=== PATIENT | female | born 2000 | race African-American/Black ===

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

== ENCOUNTER → 2019-02-08 10:51 | Outpatient (CLI) | payer MEDICARE ==
[~2019-02-08 10:51] MED LIST: ALBUTEROL SULF8.5 GM INH; HYDROCODON-ACE1 EAC7 PO; KEFLEX500 MG PO; LEVAQUIN750 MG PO; PROBIOTIC1 EAC1 PO; SULFAMETHOXAZOL1 TA3 PO; VIBRAMYCIN 100100 MG PO; VOLTAREN75 MG PO
[2019-02-08 13:13] LABS: ALBUMIN 3.8 g/dL (3.4-5.0); BILIRUBIN - DIRECT 0.13 mg/dL (0.00-0.30); BILIRUBIN - INDIRECT 0.51 mg/dL (0.00-1.00); BILIRUBIN - TOTAL 0.64 mg/dL (0.2-1.3)
== END | disposition home or self-care (01) ==
LOC: D.US 10:51
PROVIDERS: Internal Medicine Gastroenterology
DX: K76.0 Fatty (change of) liver, not elsewhere classified (principal)

== ENCOUNTER 2019-03-16 17:41 | Observation (INO) | payer MEDICARE ==
[~2019-03-16] VITALS: Ht 162.6 cm; Wt 104.3 kg
[2019-03-16 18:45] LABS: BASOPHILS 0.1 % (0-2); EOSINOPHILS 2.4 % (0-7); HEMATOCRIT 41.9 % (36.0-48.0); HEMOGLOBIN 14.1 g/dL (12-16); LYMPHOCYTES 20.6 % (15-50); MCH 27.2 pg (26.0-34.0); MCHC 33.7 g/dL (31.0-37.0); MCV 80.7 fL (80.0-100.0); MEAN PLATELET VOLUME 10.4 fL (7.4-10.4); MONOCYTES 7.8 % (2-11); NEUTROPHILS 68.1 % (40-80); RBC 5.19 10x6/uL (4.00-5.40); RDW 13.2 % (11.5-14.5); WBC 15.4 10x3/uL (4.8-10.8)
[2019-03-16 18:51] LABS: HCG SERUM NEGATIVE (NEGATIVE)
[2019-03-16 18:52] LABS: PLATELET COUNT 403 10x3/uL (130-400)
--- NOTE | 2019-03-16 19:50 | NUR ---
CENTRAL LINE PLACED BY DR. GUNDERSON, STERILE DRESSING APPLIED TO SITE. PT TOLERATED WELL.
[2019-03-16 20:10] VITALS: BP 127/82
--- NOTE | 2019-03-16 20:17 | NUR ---
PT'S WOUNDS CLEANED WITH MICRO CLEANSE, BACITRACIN OINTMENT AND CLEAN DRY DRESSING APPLIED. PT TOLERATED WELL.
[2019-03-16 20:35] LABS: ALBUMIN 3.7 g/dL (3.4-5.0); ALKALINE PHOSPHATASE 58 U/L (46-116); ALT (SGPT) 28 U/L (10-68); BILIRUBIN - TOTAL 0.36 mg/dL (0.2-1.3); CALC OSMOLALITY 280 mosm/kg (275-300); CALCIUM 9.2 mg/dL (8.5-10.1); CARBON DIOXIDE 23.4 mmol/L (21.0-32.0); CHLORIDE - SERUM 105 mmol/L (98-107); CREATININE - SERUM 0.5 mg/dL (0.6-1.3); GLUCOSE 97 mg/dL (74-106); POTASSIUM - SERUM 3.7 mmol/L (3.5-5.1); PROTEIN - SERUM 6.8 g/dL (6.4-8.2); SODIUM 140 mmol/L (136-145); UREA NITROGEN 17 mg/dL (7-18); eGFR NON AFRICAN AMERICAN > 90 mL/min (90-120)
[2019-03-16 20:36] LABS: APTT 26.5 SECONDS (22.8-39.4); INR 1.06 (0.85-1.17); PROTIME 13.3 SECONDS (11.6-15.0)
[2019-03-16 22:59] LABS: APPEARANCE HAZY (CLEAR); BACTERIA FEW /hpf (NONE SEEN); BILIRUBIN NEGATIVE (NEGATIVE); COLOR YELLOW (YELLOW); EPITHELIAL CELLS 0-5 /hpf (0-5); GLUCOSE NEGATIVE (NEGATIVE); KETONE NEGATIVE (NEGATIVE); NITRITE NEGATIVE (NEGATIVE); PROTEIN NEGATIVE (NEGATIVE); RED CELLS - URINE 0-5 /hpf (0-5); SPECIFIC GRAVITY 1.015 (1.005-1.020); UROBILINOGEN NORMAL (NORMAL)
[2019-03-16 23:02] LABS: UDS - AMPHET NEGATIVE QUAL (NEGATIVE); UDS - BARB NEGATIVE QUAL (NEGATIVE); UDS - BENZO NEGATIVE QUAL (NEGATIVE); UDS - COCAINE NEGATIVE QUAL (NEGATIVE); UDS - OPIATE POSITIVE QUAL (NEGATIVE); UDS - PCP NEGATIVE QUAL (NEGATIVE); UDS - THC POSITIVE QUAL (NEGATIVE)
[2019-03-17] VITALS (7 sets, daily range): BP systolic 106–138; BP diastolic 74–85; Ht 162.6 cm; Wt 104.3 kg
--- NOTE | 2019-03-17 04:53 | NUR ---
I have reviewed this patient and I concur with the Shift Assessment completed by the Licensed Practical Nurse today this shift.
--- NOTE | 2019-03-17 09:04 | NUR ---
PT RESTING IN BED. CO OF PAIN OF "5 TO R ELBOW AND R HEEL." FRIEND AT BEDSIDE. NO S/S OF ACUTE DISTRESS. CL IN PLACE.
[2019-03-17 09:52] LABS: BASOPHILS 0.1 % (0-2); EOSINOPHILS 1.4 % (0-7); HEMATOCRIT 37.6 % (36.0-48.0); HEMOGLOBIN 12.4 g/dL (12-16); IMMATURE GRANULOCYTES 0.4 % (0-5); LYMPHOCYTES 9.8 % (15-50); MCH 27.1 pg (26.0-34.0); MCV 82.1 fL (80.0-100.0); MEAN PLATELET VOLUME 9.7 fL (7.4-10.4); MONOCYTES 11.1 % (2-11); NEUTROPHILS 77.2 % (40-80); PLATELET COUNT 341 10x3/uL (130-400); RBC 4.58 10x6/uL (4.00-5.40); RDW 13.3 % (11.5-14.5); WBC 16.1 10x3/uL (4.8-10.8)
[2019-03-17 10:20] LABS: ALBUMIN 3.3 g/dL (3.4-5.0); ALKALINE PHOSPHATASE 59 U/L (46-116); BILIRUBIN - TOTAL 0.77 mg/dL (0.2-1.3); CALCIUM 8.8 mg/dL (8.5-10.1); CARBON DIOXIDE 26.5 mmol/L (21.0-32.0); CHLORIDE - SERUM 104 mmol/L (98-107); CREATINE KINASE 107 UL (21-215); CREATININE - SERUM 0.6 mg/dL (0.6-1.3); GLUCOSE 93 mg/dL (74-106); MAGNESIUM - SERUM 1.8 mg/dL (1.8-2.4); PHOSPHOROUS 4.6 mg/dL (2.5-4.9); PROTEIN - SERUM 6.3 g/dL (6.4-8.2); SODIUM 140 mmol/L (136-145); eGFR NON AFRICAN AMERICAN > 90 mL/min (90-120)
[2019-03-17 10:23] LABS: ALT (SGPT) 18 U/L (10-68); CALC OSMOLALITY 278 mosm/kg (275-300); UREA NITROGEN 12 mg/dL (7-18)
--- NOTE | 2019-03-17 14:19 | MORECARE ---
CASE MANAGEMENT DISCHARGE SUMMARY PATIENT: ALEENA HOLDER UNIT: [id number] ADM DATE: 03/16/19 AGE: 18 : 99 SEX: F ROOM/BED: D.2229 AUTHOR: RICCI DOUGLAS PHYSICIAN: REFERRING PHYSICIAN: SPENCER GUNDERSON MD DATE OF SERVICE: 03/17/19 Discharge Plan Patient Name: ALEENA HOLDER [facility] [facility] 2000 Planned Disposition: Home Anticipated Discharge Date: Discharge Date: Expected LOS: Initial Reviewer: [email or web address] Initial Review Date: 03/17/2019 Generated: 03/17/19 3:19 pm Patient Name: ALEENA HOLDER Page [phone] at 1419 All edits/amendments must be made on the electronic document DICTATION DATE: 03/17/19 1418 OCCUPATIONAL THERAPIST AIDE: YAIMA 03/17/19 1418 RPT#: [id number] [place] DATE: STATUS: ADM IN [facility] [address] [place] [address] END OF REPORT
--- NOTE | 2019-03-17 14:36 | MORECARE ---
CASE MANAGEMENT DISCHARGE SUMMARY PATIENT: ALEENA HOGUE UNIT: [id number] ADM DATE: 03/16/19 AGE: 18 : 99 SEX: F ROOM/BED: D.2229 AUTHOR: STELLADOC PHYSICIAN: REFERRING PHYSICIAN: SPENCER GUNDERSON MD DATE OF SERVICE: 03/17/19 Discharge Plan Patient Name: ALEENA HOGUE Facility: [facility]:[place] : 2000 Planned Disposition: Home Anticipated Discharge Date: Discharge Date: Expected LOS: Initial Reviewer: [email or web address] Initial Review Date: 03/17/2019 Generated: 03/17/19 3:36 pm Comments DCP- Discharge Planning Updated by [email or web address]: Rosa Das on 03/17/19 1:[address] Patient Name: ALEENA HOGUE Admission Status: ER Accout number: [id number] Admission Date: 03-16-2019 : 2000 Admission Diagnosis: Attending: SPENCER GUNDERSON Current LOS: 1 Anticipated DC Date: Planned Disposition: Home Primary Insurance: [employer] Discharge Planning Comments: CM met with patient to complete initial dc planning assessment. CM educated patient on the CM role and verbal consent given by patient to complete assessment. Patient lives at home with her two sisters. Her sister states their mother lives next door. She is drowsy from SKID STRAPPER and gives me permission to discuss discharge planning with her sisters. Her sister states at discharge patient plans to return home with them and feels this is a safe discharge. CM discussed availability of home health, rehab services, and medical equipment. Sister states she is having some difficulty walking and may need a walker or crutches. I placed an order for a PT eval. CM will continue to follow and will assist as needed with dc plans/needs. Bottle Washing Machine Operator: Rosa Das DCPIA - Discharge Planning Initial Assessment Updated by [email or web address]: Rosa Das on 03/17/19 2:28 pm * Is the patient Alert and Oriented? Yes * How many steps to enter\exit or inside your home? 3/0 * PCP No PCP * Pharmacy [facility] * Preadmission Environment Home with Family * ADLs Independent * Equipment None * List name and contact numbers for known caregivers / representatives who currently or will assist patient after discharge: Madhuri Hogue - mother - [phone] Alexus - sister - [phone] Arnie Hogue - sister - [phone] * Verbal permission to speak to the caregivers and representatives has been obtained from the patient. Yes * Community resources currently utilized None * Additional services required to return to the preadmission environment? No * Can the patient safely return to the preadmission environment? Yes * Has this patient been hospitalized within the prior 30 days at any hospital? No Last DP export: 03/17/19 1:19 pm Patient Name: ALEENA HOGUE Page [phone] at 1436 All edits/amendments must be made on the electronic document DICTATION DATE: 03/17/191434 OPTICAL WORKER: YAIMA 03/17/19 143 RPT#: [id number] DC DATE: STATUS: ADM IN [facility] [address] [place] [address] END OF REPORT
--- NOTE | 2019-03-17 19:46 | NUR ---
PT RESTING IN BED. DENIES PAIN. DRESSING CHANGED DONE TO R ELBOW, L HAND, AND R HEEL. NO S/S OF ACUTE DISTRESS. CL IN PLACE.
--- NOTE | 2019-03-17 20:00 | NUR ---
AWAKE,ALERT.NO COMPLAITNS VOICED. RESP EVEN AND UNLABORED. NO DISTRESS NOTED.IJ TO RIGHT NECK INTACT WITHOUT REDNESS OR EDEMA NOTED. DRESSING TO LEFT ARM WITH DRAINAGE NOTED. SLING TO RIGHT ARM INTACT.GARNETT MECHANIC DILAUDID IN USE FOR PAIN CONTROL. FAMILY AT BEDSIDE.
[2019-03-18] VITALS: BP 141/83
[2019-03-18 04:00] VITALS: BP 130/71
--- NOTE | 2019-03-18 04:17 | NUR ---
I have reviewed this patient and I concur with the Shift Assessment completed by the Licensed Practical Nurse today this shift.
[2019-03-18] MEDS ORDERED: HYDROCODON-ACE1 EAC7 PO (08:03)
[2019-03-18 09:39] VITALS: BP 138/79
--- NOTE | 2019-03-18 11:23 | MORECARE ---
CASE MANAGEMENT DISCHARGE SUMMARY PATIENT: ALEENA HOGUE UNIT: [id number] ADM DATE: 03/16/19 AGE: 18 : 99 SEX: F ROOM/BED: D.2229 AUTHOR: RICCI DOUGLAS PHYSICIAN: REFERRING PHYSICIAN: SPENCER GUNDERSON MD DATE OF SERVICE: 03/18/19 Discharge Plan Patient Name: ALEENA HOGUE Facility: [facility]:[place] : 2000 Planned Disposition: Home Anticipated Discharge Date: Discharge Date: Expected LOS: Initial Reviewer: [email or web address] Initial Review Date: 03/17/2019 Generated: 03/18/19 12:23 pm Comments DCP- Discharge Planning Updated by [email or web address]: Rosa Pippa on 03/18/19 10:[address] Discharge orders received. Her sister is in the room to take her home. She is more alert today. States she has been ambulating in the room. States is "sore". Denies needs. Home today with her sister. CM will continue to follow and assist with discharge planning/needs. DCP- Discharge Planning Updated by [email or web address]: Rosa Pippa on 03/17/19 1:[address] Patient Name: ALEENA HOGUE Admission Status: ER Accout number: [id number] Admission Date: 03-16-2019 : 2000 Admission Diagnosis: Attending: SPENCER GUNDERSON Current LOS: 1 Anticipated DC Date: Planned Disposition: Home Primary Insurance: [employer] Discharge Planning Comments: CM met with patient to complete initial dc planning assessment. CM educated patient on the CM role and verbal consent given by patient to complete assessment. Patient lives at home with her two sisters. Her sister states their mother lives next door. 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 Her sister states at discharge patient plans to return home with them and feels this is a safe discharge. CM discussed availability of home health, rehab services, and medical equipment. Sister states she is having some difficulty walking and may need a walker or crutches. I placed an order for a PT eval. CM will continue to follow and will assist as needed with dc plans/needs. Statistical Modeler: Rosa Das DCPIA - Discharge Planning Initial Assessment Updated by [email or web address]: Rosa Das on 03/17/19 2:28 pm * Is the patient Alert and Oriented? Yes * How many steps to enter\\exit or inside your home? 3/0 * PCP No PCP * [facility] * Preadmission Environment Home with Family * ADLs Independent * Equipment None * List name and contact numbers for known caregivers / representatives who currently or will assist patient after discharge: Madhuri Hogue - mother - [phone] Alexus James sister - [phone] Arnie Hogue - sister - [phone] * Verbal permission to speak to the caregivers and representatives has been obtained from the patient. Yes * Community resources currently utilized None * Additional services required to return to the preadmission environment? No * Can the patient safely return to the preadmission environment? Yes * Has this patient been hospitalized within the prior 30 days at any hospital? No Last DP export: 03/17/19 1:36 pm Patient Name: ALEENA HOGUE Page [id number] at 1123 All edits/amendments must be made on the electronic document DICTATION DATE: 03/18/191122 CODING COMPLIANCE SPECIALIST: YAIMA 03/18/191122 RPT#: [id number] ME DATE: STATUS: ADM IN [address] [place] [address] END OF REPORT
--- NOTE | 2019-03-18 11:51 | NUR ---
*WOUND CARE* LEFT AND RIGHT HIP - TOÑO LATERAL RIGHT FOOT AND RIGHT ELBOW - - WASH WITH SOAP AND WATER OR WOUND WOODS OVERSEER AND PAT DRY. - APPLY ANTIBIOTIC OINTMENT. - COVER WITH NON ADHERENT DRESSING. - WRAP WITH KERLIX AND SECURE WITH TAPE. LEFT WRIST - - WASH WITH SOAP AND WATER OR WOUND CLEANSER AND PAT DRY. - COVER WITH FOLDED 4X4 AND SECURE WITH TAPE. ABOVE WOUND CARE TO BE PROVIDED DAILY AND WHEN SOILED.
--- NOTE | 2019-03-18 13:28 | NUR ---
DC HOME AT THIS TIME. VOICE UNDERSTANDING OF DC ORDERS. SISTER AND MOM AT BEDSIDE. STABLE CONDITION UPON DC.
--- NOTE | 2019-03-21 17:25 | MORECARE ---
CASE MANAGEMENT DISCHARGE SUMMARY PATIENT: ALEENA HOGUE UNIT: [id number] ADM DATE: 03/16/19 AGE: 18 : 99 SEX: F ROOM/BED: D.2229 AUTHOR: RICCI DOUGLAS PHYSICIAN: REFERRING PHYSICIAN: SPENCER GUNDERSON MD DATE OF SERVICE: 03/21/19 Discharge Plan Patient Name: ALEENA HOGUE Facility: [facility]:[place] : 2000 Planned Disposition: Home Anticipated Discharge Date: Discharge Date: 03/18/2019 Expected LOS: 0 Initial Reviewer: [email or web address] Initial Review Date: 03/17/2019 Generated: 03/21/19 6:25 pm Comments DCP- Discharge Planning Updated by [email or web address]: Rosa Das on 03/18/19 10:[address] Discharge orders received. Her sister is in the room to take her home. She is more alert today. States she has been ambulating in the room. States is "sore". Denies needs. Home today with her sister. CM will continue to follow and assist with discharge planning/needs. DCP- Discharge Planning Updated by [email or web address]: Rosa Das on 03/17/19 1:[address] Patient Name: ALEENA HOGUE Admission Status: ER Accout number: [id number] Admission Date: 03-16-2019 : 2000 Admission Diagnosis: Attending: SPENCER GUNDERSON Current LOS: 1 Anticipated DC Date: Planned Disposition: Home Primary Insurance: [employer] Discharge Planning Comments: CM met with patient to complete initial dc planning assessment. CM educated patient on the CM role and verbal consent given by patient to complete assessment. Patient lives at home with her two sisters. Her sister states their mother lives next door. 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 Her sister states at discharge patient plans to return home with them and feels this is a safe discharge. CM discussed availability of home health, rehab services, and medical equipment. Sister states she is having some difficulty walking and may need a walker or crutches. I placed an order for a PT eval. CM will continue to follow and will assist as needed with dc plans/needs. Coffee Farmer: Rosa Quiroscharles DCPIA - Discharge Planning Initial Assessment Updated by [email or web address]: Rosa Quiroscharles on 03/17/19 2:28 pm * Is the patient Alert and Oriented? Yes * How many steps to enter\\exit or inside your home? 3/0 * PCP No PCP * [facility] * Preadmission Environment Home with Family * ADLs Independent * Equipment None * List name and contact numbers for known caregivers / representatives who currently or will assist patient after discharge: Madhuri Hogue - mother - [phone] Alexus James sister - [phone] Arnie Hogue - sister - [phone] * Verbal permission to speak to the caregivers and representatives has been obtained from the patient. Yes * Community resources currently utilized None * Additional services required to return to the preadmission environment? No * Can the patient safely return to the preadmission environment? Yes * Has this patient been hospitalized within the prior 30 days at any hospital? No Last DP export: 03/18/19 10:23 am Patient Name: ALEENA HOGUE Page [id number] at 1725 All edits/amendments must be made on the electronic document DICTATION DATE: 03/21/191724 NUMERICAL CONTROL OPERATOR: YAIMA 03/21/191724 RPT#: [id number] DC DATE:03/18/19 STATUS: DIS IN [facility] [address] [place] [address] END OF REPORT
== END 2019-03-18 13:29 | disposition home or self-care (01) ==
LOC: D.ER 17:41 → D.MS 20:21 → OBSVTIME 20:21 → D.MS 20:21
PROVIDERS: Emergency Medicine; ADMIT Surgery; ATTEND Surgery
DX: S50.01XA Contusion of right elbow, initial encounter (principal); S90.01XA Contusion of right ankle, initial encounter; S80.01XA Contusion of right knee, initial encounter; S70.01XA Contusion of right hip, initial encounter; V23.4XXA Motorcycle driver injured in collision with car, pick-up truck or van in traffic accident, initial encounter; M25.521 Pain in right elbow; M25.561 Pain in right knee; M25.551 Pain in right hip; Z72.0 Tobacco use; R10.9 Unspecified abdominal pain

== ENCOUNTER 2019-03-25 19:17 | Emergency (ER) | payer MEDICARE ==
[~2019-03-25] VITALS: Ht 162.6 cm; Wt 100.0 kg
[~2019-03-25 19:17] MED LIST changes: -ALBUTEROL SULF8.5 GM INH; -KEFLEX500 MG PO; -LEVAQUIN750 MG PO; -PROBIOTIC1 EAC1 PO; -SULFAMETHOXAZOL1 TA3 PO; -VIBRAMYCIN 100100 MG PO; -VOLTAREN75 MG PO
[2019-03-25 19:45] VITALS: Ht 162.6 cm; Wt 100.0 kg
[2019-03-25] MEDS ORDERED: VIBRAMYCIN 100100 MG PO (20:30)
[2019-03-25] MEDS ORDERED: VOLTAREN75 MG PO (20:30)
[2019-03-25 21:33] VITALS: BP 126/54
== END 2019-03-25 21:18 | disposition home or self-care (01) ==
LOC: D.ER 19:17
DX: S90.511A Abrasion, right ankle, initial encounter (principal); X58.XXXA Exposure to other specified factors, initial encounter; Y93.89 Activity, other specified; Y92.89 Other specified places as the place of occurrence of the external cause

== ENCOUNTER 2019-03-30 00:42 | Inpatient (IN) | payer MEDICARE ==
[~2019-03-30] VITALS: Ht 162.6 cm; Wt 99.1 kg
[~2019-03-30 00:42] MED LIST changes: +VIBRAMYCIN 100100 MG PO; +VOLTAREN75 MG PO
[2019-03-30 01:37] LABS: BASOPHILS 0.2 % (0-2); EOSINOPHILS 3.6 % (0-7); HEMATOCRIT 40.6 % (36.0-48.0); HEMOGLOBIN 13.7 g/dL (12-16); IMMATURE GRANULOCYTES 0.8 % (0-5); LYMPHOCYTES 13.2 % (15-50); MCH 27.2 pg (26.0-34.0); MCHC 33.7 g/dL (31.0-37.0); MCV 80.7 fL (80.0-100.0); MEAN PLATELET VOLUME 9.4 fL (7.4-10.4); MONOCYTES 6.8 % (2-11); NEUTROPHILS 75.4 % (40-80); RBC 5.03 10x6/uL (4.00-5.40); WBC 11.9 10x3/uL (4.8-10.8)
[2019-03-30 01:45] LABS: PLATELET COUNT 465 10x3/uL (130-400)
[2019-03-30 01:56] LABS: ALBUMIN 4.2 g/dL (3.4-5.0); ALKALINE PHOSPHATASE 88 U/L (46-116); ALT (SGPT) 22 U/L (10-68); BILIRUBIN - TOTAL 0.58 mg/dL (0.2-1.3); CALC OSMOLALITY 281 mosm/kg (275-300); CALCIUM 9.6 mg/dL (8.5-10.1); CARBON DIOXIDE 23.2 mmol/L (21.0-32.0); CHLORIDE - SERUM 102 mmol/L (98-107); CREATININE - SERUM 0.8 mg/dL (0.6-1.3); GLUCOSE 92 mg/dL (74-106); POTASSIUM - SERUM 3.9 mmol/L (3.5-5.1); PROTEIN - SERUM 8.6 g/dL (6.4-8.2); SODIUM 140 mmol/L (136-145); UREA NITROGEN 22 mg/dL (7-18); eGFR NON AFRICAN AMERICAN > 90 mL/min (90-120)
--- NOTE | 2019-03-30 02:00 | NUR ---
LEFT EJ INSERTED BY DR. PÉREZ, 20G. TOLERATED WELL.
[2019-03-30 02:02] LABS: AMYLASE - SERUM 74 U/L (25-115); LIPASE 122 U/L (73-393); TROPONIN-I < 0.017 ng/mL (0.000-0.060)
--- NOTE | 2019-03-30 04:00 | NUR ---
STOP TIME FOR ZOSYN AND NS IS 0400.
--- NOTE | 2019-03-30 04:20 | NUR ---
LEFT EJ STARTED BY DR. PÉREZ AT 0200, TOLERATED WELL.
--- NOTE | 2019-03-30 04:25 | NUR ---
ADMITED VIA WC FROM ER IV SET AT 75 LUNGS DEMINISHED SKIN WARM AND DRY BOWEL SOUNDS X4 PT DENIES NEEDS BED LOW AND LOCKED CALL LIGHT PUT ION REACH AND HISTORY DONE
[2019-03-30 05:35] VITALS: BP 127/53; BMI 37.5
--- NOTE | 2019-03-30 05:45 | NUR ---
HARD TO AROUSE AT THIS TIME. UNABLE TO DEEP BREATH FOR LUNG ASSESSMENT. APPEARS SEDATED. DOES ANSWER QUESTIONS APPROPRIATLY. DENIES ANY NEEDS AT THIS TIME.
[2019-03-30 09:23] VITALS: BP 137/82
--- NOTE | 2019-03-30 10:30 | NUR ---
MORPHINE AND ZOFRAN GIVEN FOR C/O ABD PAIN. WILL MONITOR.
[2019-03-30 13:18] VITALS: BP 143/76
[2019-03-30 15:22] VITALS: Ht 162.6 cm; Wt 99.1 kg
[2019-03-30 15:59] LABS: UDS - AMPHET NEGATIVE QUAL (NEGATIVE); UDS - BARB NEGATIVE QUAL (NEGATIVE); UDS - BENZO NEGATIVE QUAL (NEGATIVE); UDS - COCAINE NEGATIVE QUAL (NEGATIVE); UDS - OPIATE POSITIVE QUAL (NEGATIVE); UDS - PCP NEGATIVE QUAL (NEGATIVE); UDS - THC NEGATIVE QUAL (NEGATIVE)
[2019-03-30 16:02] LABS: APPEARANCE HAZY (CLEAR); BILIRUBIN NEGATIVE (NEGATIVE); COLOR YELLOW (YELLOW); GLUCOSE NEGATIVE (NEGATIVE); KETONE NEGATIVE (NEGATIVE); NITRITE NEGATIVE (NEGATIVE); PROTEIN NEGATIVE (NEGATIVE); UROBILINOGEN NORMAL (NORMAL)
[2019-03-30 16:12] LABS: BACTERIA FEW /hpf (NONE SEEN); WHITE CELLS - URINE OCC /hpf (0-5)
[2019-03-30 18:58] VITALS: BP 137/63
--- NOTE | 2019-03-30 19:50 | NUR ---
EVENING ROUNDS COMPLETED. VSS, AAOX4, NO S/S OF DISTRESS. PARENT AT BEDSIDE. BRUISES BILAT ARM. PT DENIES ANY PAIN @ THIS TIME. STATES SHE ONLY FEELS A LITTLE NAUSEATED, BUT [facility] [place] [facility]PS. [facility] [place] PROVIDED PER PT REQUEST. PT DENIES ANY FURTHER NEEDS AT THIS TIME. WILL CPOC.
[2019-03-30 20:00] VITALS: BP 122/68
[2019-03-31] VITALS (7 sets, daily range): BP systolic 95–124; BP diastolic 42–67
--- NOTE | 2019-03-31 08:50 | NUR ---
PT RESTING IN BED, SHIFT ASSESSMENT PERFORMED. DENIES ANY NEEDS AT THIS TIME, WILL CONT TO FOLLOW POC
--- NOTE | 2019-03-31 11:40 | NUR ---
PT C/O NAUSEA, PRN ZOFRAN GIVEN ORDERED. DENIES ANY FURTHER NEEDS AT THIS TIME, WILL CONT TO FOLLOW POC
[2019-03-31 15:27] LABS: HEMATOCRIT 35.3 % (36.0-48.0); HEMOGLOBIN 11.6 g/dL (12-16); MCH 26.8 pg (26.0-34.0); MCHC 32.9 g/dL (31.0-37.0); MCV 81.5 fL (80.0-100.0); MEAN PLATELET VOLUME 9.3 fL (7.4-10.4); PLATELET COUNT 405 10x3/uL (130-400); RBC 4.33 10x6/uL (4.00-5.40); WBC 13.9 10x3/uL (4.8-10.8)
[2019-03-31 16:03] LABS: EOSINOPHILS 3 % (0-7); LYMPHOCYTES 14 % (15-50); MONOCYTES 8 % (2-11); NEUTROPHILS 75 % (40-80)
[2019-03-31 16:04] LABS: PLATELET ESTIMATE NORMAL
--- NOTE | 2019-03-31 17:06 | NUR ---
PT RESTING IN BED WITH FAMILY AT BEDSIDE. DENIES ANY NEEDS AT THIS TIME, WILL CONT TO FOLLOW POC
--- NOTE | 2019-03-31 19:30 | NUR ---
RESUMING CARE. PT LAYING IN A&O BREATH SOUNDS EVEN UNLABORED , PT HAS LEFT IJ NS @75 , PT C/O RUNNING STOOL, SPOKE WITH KARIS HAQUE STATED HE WOULD PUT AN ORDER IN , NO OTHER COMPLAINTS AT THIS TIME CL IN REACH WILL CONT TO MONITOR
[2019-04-01 04:03] VITALS: BP 129/69
--- NOTE | 2019-04-01 07:34 | NUR ---
ROUNDING DONE WITH PATIENT LAYING ON RIGHT SIDE WITH NO NEED VOICED EXCEPT TO SLEEP. LEFT IJ PIV SEEN WITH NS INFUSING AT 75 CC/HR. ON EP, NO LABS AT THIS TIME. ON ROOM AIR. WILL MONITOR.
[2019-04-01 07:59] LABS: BASOPHILS 0.1 % (0-2); EOSINOPHILS 2.3 % (0-7); HEMATOCRIT 36.1 % (36.0-48.0); HEMOGLOBIN 11.6 g/dL (12-16); IMMATURE GRANULOCYTES 0.6 % (0-5); LYMPHOCYTES 22.1 % (15-50); MCH 26.3 pg (26.0-34.0); MCHC 32.1 g/dL (31.0-37.0); MCV 81.9 fL (80.0-100.0); MEAN PLATELET VOLUME 9.7 fL (7.4-10.4); MONOCYTES 10.4 % (2-11); NEUTROPHILS 64.5 % (40-80); PLATELET COUNT 409 10x3/uL (130-400); RBC 4.41 10x6/uL (4.00-5.40); RDW 13.2 % (11.5-14.5); WBC 12.9 10x3/uL (4.8-10.8)
[2019-04-01 08:00] LABS: CALC OSMOLALITY 284 mosm/kg (275-300); CALCIUM 8.7 mg/dL (8.5-10.1); CARBON DIOXIDE 25.7 mmol/L (21.0-32.0); CHLORIDE - SERUM 108 mmol/L (98-107); CREATININE - SERUM 0.9 mg/dL (0.6-1.3); GLUCOSE 82 mg/dL (74-106); POTASSIUM - SERUM 3.8 mmol/L (3.5-5.1); SODIUM 143 mmol/L (136-145); UREA NITROGEN 15 mg/dL (7-18); eGFR NON AFRICAN AMERICAN 85 mL/min (90-120)
--- NOTE | 2019-04-01 08:00 | NUR ---
PATIENT IS UP AD SHINE, REFUSES SCD'S.
--- NOTE | 2019-04-01 08:23 | NUR ---
EP WITH RESULTS OF 3.8.
[2019-04-01 08:54] VITALS: BP 135/65
[2019-04-01 12:12] VITALS: BP 113/55
[2019-04-01] MEDS ORDERED: LEVAQUIN750 MG PO (13:18)
[2019-04-01] MEDS ORDERED: ALBUTEROL SULF8.5 GM INH (13:19)
--- NOTE | 2019-04-01 14:04 | NUR ---
DRESSINGS CHANGED TO RIGHT ELBOW AND RIGHT ANKLE FOLLOWS: RIGHT ANKLE: 5.5 CM X 2 CM WITH WHITE EXUDATE AND RED WOUND BED UNDER THIS. COVERED WITH NEOSPORIN AND COVERED WITH WHITE BORDER GUAZE DRESSING. DATED. RIGHT ELBOW: TWO SEPERATE WOUNDS. 5 CM X 2 CM AND THE OTHER IS 3.5 CM X 2 CM. BOTH OF THEM ARE CLEAN WOUND BEDS. COVERED WITH NEOSPRIN AND WHITE BORDER GAUZE DRESSING. DATED. TOELRATED WELL. INSTRUCTED PATIENT TO CHANGE DAILY, COVER WITH NEOSPRIN AND LARGE BANDAIDS.
--- NOTE | 2019-04-01 15:52 | NUR ---
PATIENT IS WAITING ON HER MOTHER FOR DISCHARGE. SHE STILL HAS HER LEFT IJ PIV IN.
[2019-04-01 16:15] VITALS: BP 109/61
--- NOTE | 2019-04-01 16:23 | NUR ---
LEFT IJ PIV REMOVED WITH CATH TIP INTACT. CLEAN 2 X 2 AND OPSITE APPLIED. TO LAY FLAT X 15 MIN. WILL CHECK AND IF NO BLEEDING OR PROBLEMS, WILL DISCHARGE HOME WITH MOTHER.
--- NOTE | 2019-04-01 16:48 | NUR ---
VERBAL AND WRITTEN DISCHARGE INSTRCUTION GIVEN TO PATIENT AND MOTHER. DISCHARGED HOME VIA WHEELCHAIR.
--- NOTE | 2019-04-01 17:33 | MORECARE ---
CASE MANAGEMENT DISCHARGE SUMMARY PATIENT: ALEENA HOLDER UNIT: [id number] ADM DATE: 03/30/19 AGE: 18 : 99 SEX: F ROOM/BED: D.2111 AUTHOR: STELLA,DOC PHYSICIAN: REFERRING PHYSICIAN: SUJIT HER MD DATE OF SERVICE: 04/01/19 Discharge Plan Patient Name: ALEENA HOLDER Facility: [facility]:[place] : 2000 Planned Disposition: Home Anticipated Discharge Date: 04/01/19 Discharge Date: 04/01/2019 Expected LOS: 2 Initial Reviewer: [email or web address] Initial Review Date: 04/01/2019 Generated: 04/01/19 6:33 pm Comments DCP- Discharge Planning Updated by [email or web address]: Tez Valerio on 04/01/19 4:[address] Patient Name: ALEENA HOLDER Admission Status: ER Accout number: [id number] Admission Date: 03-30-2019 : 2000 Admission Diagnosis:LOBAR PNEUMONIA, UNSPECIFIED ORGANISM Attending: SUJIT HER Current LOS: 2 Anticipated DC Date: 04-01-2019 Planned Disposition: Home Primary Insurance: [employer] Discharge Planning Comments: CM MET WITH PT IN ROOM TO DISCUSS DISCHARGE PLANNING AND NEEDS. PT REPORTS LIVING AT HOME INDEPENDENTLY WITH HER MOTHER. PT HAS NO MEDICAL EQUIPMENT AND NO OUTSIDE SERVICES ASSISTING IN THE HOME. CM DISCUSSED AVAILABILITY OF HOME HEALTH, REHAB SERVICES AND MEDICAL EQUIPMENT. PT DENIES DISCHARGE NEEDS, REPORTS HER MOTHER WILL PICK HER UP FOR DISCHARGE HOME. Circulation Sales Representative: Tez Valerio DCPIA - Discharge Planning Initial Assessment Updated by [email or web address]: Tez Valerio on 04/01/19 5:26 pm * Is the patient Alert and Oriented? Yes * How many steps to enter\exit or inside your home? * PCP DR. CAMEJO * Pharmacy [facility] * Preadmission Environment Home with Family * ADLs Independent * Equipment None * Other Equipment NO MEDICAL EQUIPMENT PROVIDER PREFERNECE * List name and contact numbers for known caregivers / representatives who currently or will assist patient after discharge: KATHY RUFF, FRIEND, LINH HOLDER, MOTHER, * Verbal permission to speak to the caregivers and representatives has been obtained from the patient. N/A * Community resources currently utilized None * Please name any agencies selected above. NONE * Additional services required to return to the preadmission environment? No * Can the patient safely return to the preadmission environment? Yes * Has this patient been hospitalized within the prior 30 days at any hospital? Yes Patient Name: ALEENA HOLDER Page [id number] at 1733 All edits/amendments must be made on the electronic document DICTATION DATE: 04/01/191732 BOND CLERK: YAIMA 04/01/191732 RPT#: [id number] DC DATE:04/01/19 STATUS: DIS IN [facility] [address] [place] [address] END OF REPORT
== END 2019-04-01 17:14 | disposition home or self-care (01) | DRG 195 ==
LOC: D.ER 00:42 → D.M2 02:10
PROVIDERS: Family Medicine; ADMIT Internal Medicine Nephrology; ATTEND Internal Medicine Nephrology
DX: J18.1 Lobar pneumonia, unspecified organism (principal); N19 Unspecified kidney failure; F32.9 Major depressive disorder, single episode, unspecified; S81.801A Unspecified open wound, right lower leg, initial encounter; V89.2XXA Person injured in unspecified motor-vehicle accident, traffic, initial encounter

== ENCOUNTER 2019-04-24 20:51 | Emergency (ER) | payer MEDICARE ==
[~2019-04-24] VITALS: Ht 162.6 cm; Wt 99.8 kg
[~2019-04-24 20:51] MED LIST changes: +ALBUTEROL SULF8.5 GM INH; +LEVAQUIN750 MG PO
[2019-04-24 20:54] VITALS: Ht 162.6 cm; Wt 99.8 kg
[2019-04-24] MEDS ORDERED: KEFLEX500 MG PO (23:07)
[2019-04-24] MEDS ORDERED: SULFAMETHOXAZOL1 TA3 PO (23:07)
[2019-04-24] MEDS ORDERED: PROBIOTIC1 EAC1 PO (23:43)
[2019-04-24 23:45] VITALS: BP 122/75
== END 2019-04-24 23:45 | disposition home or self-care (01) ==
LOC: D.ER 20:51
DX: L02.31 Cutaneous abscess of buttock (principal)